=== PATIENT | female | born 1995 | race Caucasian/White ===

== ENCOUNTER 2018-11-21 18:37 | Emergency (ER) | payer MEDICAID ==
[~2018-11-21] VITALS: Ht 167.6 cm; Wt 84.0 kg
[~2018-11-21 18:37] MED LIST: ONDA4TAB6 PO
[2018-11-21 18:57] VITALS: BP 132/93
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
[2018-11-21] MEDS ORDERED: IBUP-1984 PO (19:39)
[2018-11-21] MEDS ORDERED: SULF1TAB49 PO (19:39)
[2018-11-21] MEDS ORDERED: ibuprofen tablet 400 MG TABLET PO ONE (19:40)
== END 2018-11-21 19:59 | disposition home or self-care (01) ==
LOC: ER 18:37
DX: L03.012 Cellulitis of left finger (principal); L03.011 Cellulitis of right finger; F12.90 Cannabis use, unspecified, uncomplicated; Z79.899 Other long term (current) drug therapy; Z60.2 Problems related to living alone
CPT/HCPCS: 99283

== ENCOUNTER 2019-03-20 15:10 | Emergency (ER) | payer MEDICAID ==
[~2019-03-20] VITALS: Ht 167.6 cm; Wt 90.0 kg
[2019-03-20] MEDS ORDERED: normal saline 1000ML IV soln IVB ONE (16:05)
[2019-03-20] MEDS ORDERED: proCHLORperazine 10 MG/2 ml inj IM ONE (16:35)
[2019-03-20] MEDS ORDERED: diphenhydrAMINE 25mg capsule PO ONE (16:35)
[2019-03-20] MEDS ORDERED: ketorolac tromethamine 15mg/ml inj. IM ONE (16:35)
[2019-03-20 17:35] VITALS: BP 116/73
== END 2019-03-20 17:38 | disposition home or self-care (01) ==
LOC: ER 15:10
DX: S06.0X0A Concussion without loss of consciousness, initial encounter (principal); S40.011A Contusion of right shoulder, initial encounter; S00.83XA Contusion of other part of head, initial encounter; R11.2 Nausea with vomiting, unspecified; F17.200 Nicotine dependence, unspecified, uncomplicated; F12.90 Cannabis use, unspecified, uncomplicated; Z60.2 Problems related to living alone; Z79.899 Other long term (current) drug therapy; W18.39XA Other fall on same level, initial encounter; Y93.89 Activity, other specified; Y92.89 Other specified places as the place of occurrence of the external cause; Y99.8 Other external cause status
CPT/HCPCS: 70450; 73030; 96360; 96372; 99284; J0780; J1885; J7030; Q0163; 99283

== ENCOUNTER 2019-04-03 19:12 | Emergency (ER) | payer MEDICAID ==
[~2019-04-03] VITALS: Ht 167.6 cm; Wt 86.8 kg
[2019-04-03 19:15] VITALS: BP 132/86
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
== END 2019-04-03 20:17 | disposition home or self-care (01) ==
LOC: ER 19:12
DX: S60.221A Contusion of right hand, initial encounter (principal); F12.90 Cannabis use, unspecified, uncomplicated; Z60.2 Problems related to living alone; Z79.899 Other long term (current) drug therapy; W22.8XXA Striking against or struck by other objects, initial encounter; Y93.89 Activity, other specified; Y92.89 Other specified places as the place of occurrence of the external cause; Y99.8 Other external cause status
CPT/HCPCS: 29125; 73130; 99283

== ENCOUNTER 2021-10-13 19:37 | Emergency (ER) | payer MEDICAID ==
[~2021-10-13] VITALS: Ht 167.6 cm; Wt 84.5 kg
[2021-10-13 20:04] VITALS: BP 145/100
== END 2021-10-13 22:01 | disposition left against medical advice (07) ==
LOC: ER 19:37
DX: H92.02 Otalgia, left ear (principal); Z53.21 Procedure and treatment not carried out due to patient leaving prior to being seen by health care provider

== ENCOUNTER 2023-05-06 13:04 | Emergency (ER) | payer MEDICAID ==
[~2023-05-06] VITALS: Ht 167.6 cm; Wt 86.0 kg
[2023-05-06 13:19] VITALS: BP 123/74; PULSE 69; RESP 17; TEMP 97.9; O2SAT 98
[2023-05-06] MEDS ORDERED: IBUP-1984 PO (14:35)
== END 2023-05-06 15:16 | disposition home or self-care (01) ==
LOC: ER 13:05
DX: S63.697A Other sprain of left little finger, initial encounter (principal); F12.90 Cannabis use, unspecified, uncomplicated; Z79.899 Other long term (current) drug therapy; Z60.2 Problems related to living alone; W23.0XXA Caught, crushed, jammed, or pinched between moving objects, initial encounter; Y93.89 Activity, other specified; Y92.89 Other specified places as the place of occurrence of the external cause; Y99.8 Other external cause status
CPT/HCPCS: 29130; 73130; 99283